=== PATIENT | female | born 1945 | race Caucasian/White ===

== ENCOUNTER 2017-07-09 07:40 | Day surgery (SDC) | payer MEDICARE, BC ==
[~2017-07-09] VITALS: Ht 157.5 cm; Wt 63.0 kg
--- NOTE | ~2017-07-09 | EGD ---
EGD REPORT [facility] [address] [address] NAME: ALYSON ALONSO : [birth year] STATUS : REG [facility]#: [id number] AGE: 72 ADM/REG DATE : 07/09/17 MR#: [id number] REPORT SERV DATE: 07/09/17 DICTATED BY: JOSE ARMANDO RIVAS DATE: 07/09/17 REPORT STATUS : Draft TRANSCRIBED BY: [facility] DATE: 07/09/17 Pulmonology Patient Name: Alyson Alonso Procedure Date: 07/09/2017 9:11 AM Date of : 1945 Attending MD: ARTHUR RIVAS MD Procedure Date No Time: 07/09/2017 Procedure: Navigational Bronchoscopy Indications: RLL lung nodule, mediastinal staging and recent CT FNA RUL lung nodule positive for lung cancer Providers: ARTHUR RIAVS MD Referring MD: DANIEL Torres MD Medicines: Lidocaine 2% 20 mL Complications: No immediate complications Procedure: Pre-Anesthesia Assessment: - A History and Physical has been performed. Patient meds and allergies have been reviewed. The risks and benefits of the procedure and the sedation options and risks were discussed with the patient. All questions were answered and informed consent was obtained. Patient identification and proposed procedure were verified prior to the procedure by the physician and the nurse in the pre-procedure area in the procedure room. Mental Status Examination: alert and oriented. Airway Examination: normal oropharyngeal airway. Respiratory Examination: clear to auscultation. CV Examination: normal and RRR, no murmurs, no S3 or S4. ASA Grade Assessment: IV - A patient with severe systemic disease that is a constant threat to life. After reviewing the risks and benefits, the patient was deemed in satisfactory condition to undergo the procedure. The anesthesia plan was to use general anesthesia. Immediately prior to administration of medications, the patient was re-assessed for adequacy to receive sedatives. The heart rate, respiratory rate, oxygen saturations, blood pressure, adequacy of pulmonary ventilation, and response to care were monitored throughout the procedure. The physical status of the patient was re-assessed after the procedure. After obtaining informed consent, the Bronchoscope was introduced through the mouth, via the endotracheal tube (the patient was intubated for the procedure) and advanced to the tracheobronchial tree. the BF [id number] was introduced through the mouth, via the endotracheal tube (the patient was intubated for the procedure) and advanced to the tracheobronchial tree. EGD REPORT [address] [place]. [address] NAME: ALYSON ALONSO : [birth year] STATUS : REG [facility] [place] PAT#: [id number] AGE: 72 ADM/REG DATE : 07/09/17 MR#: [id number] REPORT SERV DATE: 07/09/17 DICTATED BY: JOSE ARMANDO RIVAS DATE: 07/09/17 REPORT STATUS : Draft TRANSCRIBED BY: [employer] DATE: 07/09/17 The procedure was accomplished without difficulty. The patient tolerated the procedure well. Findings: The endotracheal tube is in good position. The visualized portion of the trachea is of normal caliber. The cristobal is sharp. The tracheobronchial tree was examined to at least the first subsegmental level. Bronchial mucosa and anatomy are normal; there are no endobronchial lesions, and no secretions. EBUS TBNA of lymph node level 11L x 4 passes for cytology EBUS TBNA of lymph node level 4L x 4 passes for cytology EBUS TBNA of lymph node level 7 x 4 passes for cytology EBUS TBNA of lymph node level 4R x 4 passes for cytology EBUS TBNA of lymph node level 11R x 4 passes for cytology Using SuperDimension Edge catheter 180, peripheral probe EBUS 17s, and fluoroscopy, I performed the following biopsies: RLL lung nodule transbronchial needle aspirates x 6 passes for cytology RLL lung nodule transbronchial brush biopsies x 2 passes for cytology RLL lung nodule transbronchial forcep biopsies x 8 passes for histopathology Bronchoalveolar lavage was performed in the right lower lobe of the lung and sent for routine cytology. 180 mL of fluid were instilled. 20 mL were returned. The return was blood-tinged and cellular. Impression: Rapid On-Site Evaluation (UMESH): Preliminary cytology is suggestive of a benign lesion (final results are pending). LLL lung nodule was difficult to biopsy due to proximity of the diaphragm and respiratory motion. I was able to visualize the lesion with an eccentric view. Mediastinal lymph nodes were all negative. Recommendation: - Await test results. - Chest X-ray post-procedure. - Follow up with referring physician, Drs. Daniel Vieira and Dr. Fred Alston Attending Participation: I personally performed the entire procedure. ARTHUR RIVAS MD 07/09/2017 11:38 AM This report has been signed electronically. Number of Addenda: 0 Note Initiated On: 07/09/2017 9:11 AM [address] [address]
--- NOTE | ~2017-07-09 | CN ---
Consultation Report [facility] [address] [place]. [address] NAME: ALYSON ALONSO : [birth year] STATUS : [facility]#: [id number] AGE: 72 ADM/REG DATE : 07/09/17 MR#: [id number] REPORT SERV DATE: 07/11/17 DICTATED BY: MONIQUE RIVAS DATE: 07/11/17 REPORT STATUS : Draft TRANSCRIBED BY: [employer] DATE: 07/11/17 CONSULTATION DATE OF CONSULTATION: 07/09/[address] Alston: Thank you for requesting my opinion regarding evaluation and management of Ms. Alyson Alonso's recently diagnosed squamous cell carcinoma, status post right upper lobe nodules, CT guided needle biopsy, right lower lobe lung nodule, and mediastinal staging. Ms. Alonso is an extremely pleasant 72-year-old female with a significant past medical history of tobacco abuse, emphysema, COPD, type 2 diabetes, coronary artery disease, hypertension, peripheral vascular disease, and ovarian cancer in 2005, status post chemotherapy and surgical intervention, who presents as a direct referral from Dr. Fred Alston for EBUS and navigational bronchoscopy. The patient had a PET-CT scan on 06/20/2017 that demonstrated a 3.4 x 2 cm right upper lobe lung nodule increased in size from 05/01/2017 from 2.6 x 1.5 cm, which abuts the lateral pleural surface with an SUV of 21.2. The patient additionally had a right lower lobe lung lesion that measured 1.8 x 2.1, stable in size only with a max SUV of 9.6. There is a 4-mm soft tissue nodule medially adjacent to the superior vena cava on the right medial lung or mediastinum with an SUV of 6.5, all consistent with potential neoplastic or metastatic disease. The patient underwent a CT- guided needle biopsy on 06/09/2017 of the right upper lobe lung nodule demonstrated moderately differentiated squamous cell carcinoma. MRI on 06/20/2017 was negative, and then pulmonary function test demonstrated an FEV1 of 72%, DLCO of 61%. The patient was seen and evaluated by Dr. Holguin, but continues to smoke up to this point. The patient has been seen by Dr. Fred Alston on 06/26/2017 with recommendation for bronchoscopic biopsy. The patient states she has chronic shortness of breath well localized to the chest, nonradiating with no significant alleviating or exacerbating factors. REVIEW OF SYSTEMS: A detailed 14-point review of systems was completed. Pertinent positives and negatives are listed above. PAST MEDICAL HISTORY: 1. Type 2 diabetes. 2. Emphysema. 3. Coronary artery disease. 4. Hypertension. 5. Peripheral vascular disease. 6. Peptic ulcer disease. 7. Pulmonary fibrotic changes. PAST SURGICAL HISTORY: Consultation Report [address] [place]. [address] NAME: ALYSON ALONSO : [birth year] STATUS : [facility] [place] [place] PAT#: [id number] AGE: 72 ADM/REG DATE : 07/09/17 MR#: [id number] REPORT SERV DATE: 07/11/17 DICTATED BY: MONIQUE RIVAS DATE: 07/11/17 REPORT STATUS : Draft TRANSCRIBED BY: DIXIE DATE: 07/11/17 1. Tonsillectomy and adenoidectomy. 2. Appendectomy. 3. Partial hysterectomy. 4. Cholecystectomy. 5. Carpal tunnel syndrome surgery. 6. Back surgery. 7. Nephrolithiasis with ureteral stent placement. 8. Ovarian carcinoma, status post chemo and surgical intervention in 2005. FAMILY HISTORY: No history of malignancy. SOCIAL HISTORY: The patient lives with her and worked as a elementary school counselor until 2008, and continued to smoke since age 22 approximately half pack per day at this time. She denies any significant alcohol or illicit drug abuse. ALLERGIES: MORPHINE, CODEINE, STREPTOMYCIN, MACROBID. HOME MEDICATIONS: Reviewed and located in the paper chart. PHYSICAL EXAMINATION: VITAL SIGNS: Reviewed and located in the paper chart. GENERAL: In no acute distress. Able to communicate in full paragraphs at a time. HEENT: Normocephalic, atraumatic. Pupils equal, round, reactive to light and accommodation. Posterior oropharynx is clear. NECK: No JVD. No LAD. Trachea midline. CARDIOVASCULAR: Regular rate and rhythm. S1, S2 present. LUNGS: Clear to auscultation bilaterally. ABDOMEN: Nontender, nondistended, soft. Positive bowel sounds. EXTREMITIES: No clubbing, cyanosis, or edema. SKIN: No new rashes, lesions, or ulcers. PSYCHIATRIC: Alert and oriented x3. Appropriate mood and affect. Appropriate insight and judgment. NEUROLOGIC: 5/5 strength in upper and lower extremities. Cranial nerves 2 through 12 intact. Gait not tested. DTRs not performed. IMAGIN. Chest CT on 05/01/2017 was personally reviewed by me. I agree with the following interpretation, new 16 x 28 lobulated right upper lobe lung nodule. 2. New 24 x 18 mm nodule located in the right lower lobe. There is also an adjacent 6 x 10 mm satellite nodule this level. 3. Continue pattern of underlying fibrotic disease and subpleural reticulation at home coming with only minimally progressed since 08/19/2014. 4. Moderate upper lobe predominant emphysematous changes in the lung. No lymphadenopathy. 5. Stable low-density nodules involving both adrenal glands secondary to adrenal adenomas. 6. Atherosclerotic vascular disease as described with heavy coronary artery calcification, Consultation Report [address] [place]. [address] NAME: ALYSON ALONSO : [birth year] STATUS : [facility] [place] [place] PAT#: [id number] AGE: 72 ADM/REG DATE : 07/09/17 MR#: [id number] REPORT SERV DATE: 07/11/17 DICTATED BY: MONIQUE RIVAS DATE: 07/11/17 REPORT STATUS : Draft TRANSCRIBED BY: DIXIE DATE: 07/11/17 stent seen within the left subclavian artery, celiac artery, superior mesenteric artery. 7. Lung-RADS score of 4B. 07/13/2000 PET-CT scan results were reviewed personally by me. An MRI of the brain dated 06/20/2017 was also personally reviewed by me. ASSESSMENT AND PLAN: Ms. Alyson Alonso is an extremely pleasant 72-year-old female with a significant past medical history of active tobacco dependence, recent diagnosis of right upper lobe squamous cell carcinoma with multiple other right-sided lung nodules including the medial right upper lobe, right lower lobe, who has been referred for EBUS and navigation bronchoscopy and mediastinal staging. I discussed in detail other potential options including thoracic surgical intervention, EBUS, navigation bronchoscopy, and CT-guided needle biopsy. After careful discussion of the risks, benefits, and alternatives, and we agreed that it was appropriate to proceed with EBUS and navigation bronchoscopy, which will allow us to perform mediastinal staging and potentially assessed the right lower lobe lung nodule. The right lower lobe lung nodule biopsy will be particularly difficult because of its close proximity to the pleural surface and diaphragmatic motion. Nonetheless, we will attempt to make this to performed this biopsy. The patient is aware that the procedure is associated with potential life-threatening risks, including lung collapse, respiratory failure, and even . RECOMMENDATIONS: A summary of my recommendations are as follows: 1. Proceed with EBUS and navigation bronchoscopy. 2. The patient consented to body vision trial. 3. 3D fluoroscopic imaging and computer-assisted navigational bronchoscopy. Thank you for allowing me to participate in Ms. Alyson Alonso's care. SOUMYA/DIXIE Monique Rivas M.D. / [id number] CC: Brooks Ann M.D.
[~2017-07-09 07:40] MED LIST: ACTOS15 PO; ASA5GR PO; ASAB PO; CALCIUM OTC PO; CALTRA600D PO; CALTRAT600 PO; COUMADIN7.5 MG PO; COZ50 PO; DITRO5 PO; FLAG500TAB PO; IRON OTC PO; JANUVIA100 MG PO; KDUR10 PO; KLOR-CON 1010 MEQ PO; KLOR-CON M1010 MEQ PO; LEVAQUIN750 MG PO; LIPITOR10 PO; LISINOPRIL PO; LOP25 PO; LOP50 PO; METHOC500B PO; METOPROLOL PO; MOBIC7.5 PO; NITROQUICK0.4 MG SL; NITROSTAT0.4 MG SL; NORV10 PO; OCUVITE PO; PCET PO; PLAVIX PO; POTASSIUM RX PO; PRILO PO; PRINZIDE1 TAB PO; PROAIR HFA INH; PROVENTSOL INH; REFRESH OP; STERAPDS12; STERAPRED DS10 MG; TOPXL50 PO; TYLENOL PM PO; XARELTO20 MG PO; ZESTORETIC1 TAB PO; ZOL100 PO; ZOL50 PO
[2017-07-09 08:01] LABS: BASOPHILS 0.8 %; BASOPHILS ABSOLUTE 0.06 10/3/uL (0.0-0.16); EOSINOPHILS ABSOLUTE 0.22 10/3/uL (0.0-0.53); HEMOGLOBIN 15.1 g/dL (12.0-16.0); IMMATURE GRANULOCYTES 0.4 %; IMMATURE GRANULOCYTES ABSOLUTE 0.03 10/3/uL (0.0-0.11); LYMPHOCYTES 16.5 %; LYMPHOCYTES ABSOLUTE 1.22 10/3/uL (0.67-4.30); MEAN CORPUS HGB CONC 34.3 g/dL (32.0-36.0); MEAN CORPUSCULAR HEMOGLOB 31.6 pg (26.0-34.0); MEAN CORPUSCULAR VOLUME 92.1 fL (80-100); MEAN PLATELET VOLUME 9.3 fL (9.2-13.0); MONOCYTES 7.2 %; MONOCYTES ABSOLUTE 0.53 10/3/uL (0.21-1.20); NEUTROPHILS 72.1 %; NEUTROPHILS ABSOLUTE 5.34 10/3/uL (2.02-8.40); RBC DISTRIBUTION WIDTH 13.8 % (12.0-16.0); RED CELL COUNT 4.78 10/6/uL (4.0-5.6); WHITE BLOOD CELLS 7.4 10/3/uL (4.5-10.5)
[2017-07-09 08:04] LABS: MANUAL DIFF NO %; PLATELET COUNT 168 10/3/uL (150-400)
[2017-07-09 08:08] LABS: PARTIAL THROMBO TIME 31.2 SEC (22.5-37.2); PROTIME (NOT ORD) 13.1 SEC (12.0-14.5)
[2017-07-09 08:12] LABS: BUN (BLOOD UREA NITROGEN) 19 MG/DL (6-23); CALCIUM, SERUM 9.5 MG/DL (8.5-10.4); CHLORIDE, SERUM 103 MMOL/L (96-112); CO2 (CARBON DIOXIDE) 31 MMOL/L (24-34); CREATININE 0.89 MG/DL (0.55-1.02); GFR AFRICAN AMERICAN 76 ML/MIN (>=60); GFR NON AFRICAN AMERICAN 66 ML/MIN (>=60); GLUCOSE, SERUM 196 MG/DL (60-99); POTASSIUM, SERUM 4.3 MMOL/L (3.5-5.3); SODIUM, SERUM 140 MMOL/L (135-148)
== END 2017-07-09 14:03 | disposition home or self-care (01) ==
LOC: DMU 07:40
PROVIDERS: Internal Medicine
PROC: 07974ZX Drainage of Thorax Lymphatic, Percutaneous Endoscopic Approach, Diagnostic (ICD-10-PCS; principal; 2017-07-09 09:30)
PROC: BB4BZZZ Ultrasonography of Pleura (ICD-10-PCS; 2017-07-09 09:30)
PROC: 0BBF8ZX Excision of Right Lower Lung Lobe, Via Natural or Artificial Opening Endoscopic, Diagnostic (ICD-10-PCS; 2017-07-09 09:30)
PROC: 0B9F8ZX Drainage of Right Lower Lung Lobe, Via Natural or Artificial Opening Endoscopic, Diagnostic (ICD-10-PCS; 2017-07-09 09:30)
DX: R91.1 Solitary pulmonary nodule (principal); C34.11 Malignant neoplasm of upper lobe, right bronchus or lung; I25.10 Atherosclerotic heart disease of native coronary artery without angina pectoris; I11.0 Hypertensive heart disease with heart failure; I50.9 Heart failure, unspecified; I25.2 Old myocardial infarction; I73.9 Peripheral vascular disease, unspecified; E11.9 Type 2 diabetes mellitus without complications; E78.00 Pure hypercholesterolemia, unspecified; J44.9 Chronic obstructive pulmonary disease, unspecified; F17.210 Nicotine dependence, cigarettes, uncomplicated; K58.9 Irritable bowel syndrome, unspecified; F32.9 Major depressive disorder, single episode, unspecified; G47.33 Obstructive sleep apnea (adult) (pediatric); M19.90 Unspecified osteoarthritis, unspecified site; M47.9 Spondylosis, unspecified; H26.9 Unspecified cataract; Z85.43 Personal history of malignant neoplasm of ovary; Z87.442 Personal history of urinary calculi; Z92.21 Personal history of antineoplastic chemotherapy; Z88.1 Allergy status to other antibiotic agents; Z88.5 Allergy status to narcotic agent; Z90.89 Acquired absence of other organs; Z95.5 Presence of coronary angioplasty implant and graft; Z90.49 Acquired absence of other specified parts of digestive tract; Z90.710 Acquired absence of both cervix and uterus; Z91.19 Patient's noncompliance with other medical treatment and regimen; Z79.01 Long term (current) use of anticoagulants; Z79.82 Long term (current) use of aspirin; Z79.899 Other long term (current) drug therapy; Z98.890 Other specified postprocedural states
CPT/HCPCS: 71010; 80048; 82962; 85025; 85610; 85730; 88112; 88172; 88173; 88305; 88333; 93005; C1725; C1769; J2710